=== PATIENT | male | born 1995 | race Caucasian/White ===

== ENCOUNTER 2023-04-08 19:32 | Emergency (ER) | payer OTHER ==
[~2023-04-08] VITALS: Ht 182.9 cm; Wt 149.7 kg
[2023-04-08 19:42] VITALS: BP 118/84
[2023-04-08 23:27] LABS: BODY FLUID RBC 0.028 M/mm3 (0-0)
[2023-04-08 23:32] LABS: WBC Count, Synovial Fluid 732 /mm3 (0-180)
[2023-04-08 23:35] LABS: Body Fluid Crystals NEG (NEGATIVE); RBC Count, Synovial Fluid 28000 /mm3 (0-0)
[2023-04-09 00:32] LABS: Lymphs, Synovial Fluid 3 % (0-15); Monocytes/Macrophages, Synovia 54 % (0-65); Neutrophils, Synovial Fluid 43 % (0-24)
[2023-04-09 00:33] LABS: Appearance, Synovial Fluid Cloudy (Clear); Color, Synovial Fluid Red (None-P Yel)
== END 2023-04-09 00:53 | disposition home or self-care (01) ==
LOC: ER 19:32
PROVIDERS: Student in an Organized Health Care Education/Training Program
DX: M79.671 Pain in right foot (principal); F17.290 Nicotine dependence, other tobacco product, uncomplicated
CPT/HCPCS: 87070; 87075; 87205; 89051; 89060; 96372; 99283-25; A9270; J1885